=== PATIENT | female | born 1960 | race Caucasian/White ===

== ENCOUNTER 2018-08-01 05:24 | Inpatient (IN) ==
[2018-08-01] MEDS ORDERED: ceFAZolin Inj 2gm (Premix) 2 GM/50 ML BAG IV ONE ×2 (05:54→06:00)
[2018-08-01] MEDS ORDERED: LIDOCAINE W/ SODIUM BICARB 0.5 ML SYR ONE (05:54)
[2018-08-01] MEDS ORDERED: Lactated Ringers 1,000 ML PRIMARY IV ONE ×7 (05:54→15:42)
[2018-08-01] MEDS ORDERED: Sodium Chloride 0.9% 250 ML ONE (05:54)
[2018-08-01] MEDS ORDERED: Vancomycin Inj 1gm vial ONE ×2 (05:54→07:03)
[2018-08-01] MEDS ORDERED: Nasal Sanitizer POPSWAB ampule 3 AMP (Nozin) PREOP DOSE ENOS SCH (06:00)
[2018-08-01] MEDS ORDERED: LIDOCAINE W/ SODIUM BICARB 0.5 ML SYR SUBD ONE (06:00)
[2018-08-01] MEDS ORDERED: Propofol 1,000 MG/100 ML VIAL IV ONE ×5 (06:48→14:38)
[2018-08-01] MEDS ORDERED: REMIFENTANIL HCL 2 MG VIAL IV ONE ×3 (06:50→15:05)
[2018-08-01] MEDS ORDERED: LIDOCAINE MPF 2% - 5 ML (20 MG/1 ML) ONE (06:59)
[2018-08-01] MEDS ORDERED: PROPOFOL 10 MG/1 ML (200 MG/20 ML) VIAL IV ONE (06:59)
[2018-08-01] MEDS ORDERED: BACITRACIN 50,000 UNIT VIAL IRRIG ONE (06:59)
[2018-08-01] MEDS ORDERED: fentaNYL Inj 250 MCG/5 ML VIAL ONE (06:59)
[2018-08-01] MEDS ORDERED: MIDAZOLAM 5 MG/1 ML ONE (06:59)
[2018-08-01] MEDS ORDERED: BUPIVACAINE 0.25% W/ EPI - 10 ML VIAL ONE (07:01)
[2018-08-01] MEDS ORDERED: Gentamicin Inj 40 MG/ML VIAL ONE (07:01)
[2018-08-01] MEDS ORDERED: Sodium Chloride 0.9% vial 40 ML ONE (07:06)
[2018-08-01] MEDS ORDERED: ePHEDrine Inj 50 MG/ML AMP ONE (07:33)
[2018-08-01] MEDS ORDERED: KETAMINE 100 MG/1 ML - 5 ML ONE (11:37)
[2018-08-01] MEDS ORDERED: ceFAZolin 1 GM VIAL ONE (11:39)
[2018-08-01] MEDS ORDERED: ONDANSETRON 4 MG/2 ML VIAL ONE (14:25)
[2018-08-01] MEDS ORDERED: HYDROmorphone 2 MG/1 ML ONE (14:25)
[2018-08-01] MEDS ORDERED: BUPivacaine Liposome/PF (Exparel) Inj 20ml vial INFIL ONE (15:56)
[2018-08-01] MEDS ORDERED: Sodium Chloride 0.9% vial 10 ML ONE (15:57)
[2018-08-01] MEDS ORDERED: Prochlorperazine Edisylate Inj 10mg/2ml vial IVP PRN (16:56)
[2018-08-01] MEDS ORDERED: LIDOCAINE W/ SODIUM BICARB 0.5 ML SYR SUBD PRN (16:56)
[2018-08-01] MEDS ORDERED: HYDROmorphone 2 MG/1 ML IVP PRN (16:56)
[2018-08-01] MEDS ORDERED: oxyCODONE/APAP 10/325 Tab 1 EACH TAB PO PRN (16:56)
--- NOTE | 2018-08-01 16:56 | CRNA.PROGR ---
Anesthesia Recovery Phase I - Post Anesthesia Evaluation Patient's Condition on Arrival in Phase I: Stable Pain Level: 1
[2018-08-01] MEDS ORDERED: Lactated Ringers 1,000 ML PRIMARY IV SCH (17:00)
[2018-08-01] MEDS ORDERED: DIAZEPAM 10 MG/2 ML (5 MG/1 ML) CARPUJECT ONE (17:07)
--- NOTE | 2018-08-01 17:07 | CRNA.PROGR ---
Anesthesia Time - Procedure/Recovery Time Start Date: 08/01/18 End Date: 08/01/18 Anesthesia : Time In: 07:22 Anesthesia : Time Out: 16:52 Anesthesia : Total Time: 570 - Total Anesthesia Time Total Anesthesia Time (minutes): 570 - Other Weight: 78.471 kg Height: 5 ft 3 in Body Mass Index (BMI): 30.6 Physical Status: P2 Anesthesia Type: General Anesthesia : ET (TIVA)
--- NOTE | 2018-08-01 18:03 | GEN.OPNOTE ---
Operative Note Surgery Date: 08/01/18 Preoperative Diagnosis: 1.) Low back pain. 2.) Symptomatic lumbar stenosis/ neurogenic claudication. 3.) Severe lumbar central canal stenosis, L4-5. 4.) Severe lumbar lateral recess stenosis, L4-5 bilaterally. 5.) Severe lumbar neuroforaminal stenosis, L4-5 bilaterally. 6.) L4-5 spondyloslisthesis. 7.) L4 -5 degenrative disc disease/spondylosis (adjacent level). 8.) S/P L6-S1 interbody fusion/L5-L6-S1 posterolateral instrumented fusion. Postoperative Diagnosis: Same. Procedure: 1.) L5-L6-S1 hardware removal (CPT code: 54622). 2.) Inspection of fusion (CPT code: 56009-65). 3.) Partial L4 laminectomy with medial facetectomies and foraminotomies for decompression of severe central canal, lateral recess, and neuroforaminal stenosis (CPT code: 85068). 4.) Partial L5 laminectomy with medial facetectomies and foraminotomies decompression of severe central canal, lateral recess, and neuroforaminal stenosis (CPT code: 90106). 5.) L4-5 discectomy/arthrodesis of the L4 and L5 endplates, posterolateral interbody technique, in preparation for fusion of the L4-5 interspace with L4-5 posterolateral transverse process arthrodesis in preparation for posterolateral fusion (CPT code: 95339). 6.) L5-L6 posterolateral arthrodesis bilaterally for posterolateral fusion (CPT code: 52973). 7.) L6-S1 posterolateral arthrodesis bilaterally for posterolateral fusion (CPT code: 33635). 8.) Insertion of 7mm x 28 mm x 11 mm and 8 mm x 28 mm x [address] posterior lumbar interbody cages into the L4-5 interspace for fusion of the interspace (CPT code: 43036). 9.) L4-L5-L6 posterolateral semental spinal instrumentation using the [employer] [place] 3 pedicle screw and maryanne system (CPT code: 57497). 10.) Use of autograft, harvested from the same incision, cleaned of soft tissue and morselized for interbody and posterolateral fusion (CPT code: 10956). 11.) Use of 5 cc of My 1% i- Factor synthetic bone producet (allograft) and 20 cc Anca BIO DBM Plus Putty with cancellous chips (allograft) for interbody and posterolateral fusion, and [employer] Vitoss synthetic bone product (allograft) and 30 cc cancellous bone chips (allograft) for posterolateral fusion (CPT code: 05507). 12.) Use of intra-operative neuronavigation using the [employer] Neuronavagation system with [employer] 3D fluoroscopy units (CPT code: 31700). 13.) Use of intra-operative fluoroscopy for localization of correct surgical levels and for final confirmation of position of intervertebral cage and posterolateral hardware elements. 14.) Use of intra-operative neuromonitoring for neuromonitoring of the spinal nerves with continuous EMG, triggered EMG, and SSEP's. Surgeon: Rafael Segovia MD Pocketed Spring Assembler: MOIZ Aleman Anesthesia Provider: Carson Mahmood CRNA Anesthesia Type: General Estimated Blood Loss (mL): 350 Fluids: See anesthesia record Pathology: None Indications: Ms. Lesa Hollingsworth is a 57-year-old female status with back and bilateral leg pain, status post two lumbar fusions performed previously by Dr. Ardon. She has fusion and instrumentation from L5 across L6 to S1. She has imaging studies that demonstrate adjacent-level degenerative disc disease and adjacent- level lumbar spondylosis with facet arthropathy and hypertrophy with severe spinal canal, lateral recess, and neuroforaminal stenosis at the L4-5 level. She has failed to improve with nonoperative therapies. We discussed considering surgical treatment which, in my opinion, would entail removal of her L5 to L6 to S1 hardware and decompression of her severe lumbar central canal , laeral recess, and neuroforaminal stenosis and extension of her fusion to the L4-5 level with interbody and posterolateral fusion. Ms. Hollingsworth wished to proceed with surgical treatment. Findings: Severe central canal, lateral recess, and neuroforaminal stenosis bilaterally Complications: None Operative Summary: Ms. Hollingsworth was met in the preoperative area. Her surgical history and physical was updated. The procedure to be performed was confirmed with this Effler and this matched what was written on the patient's consent form. Any questions that she or family members had were answered before she was taken back to the operating room suite. Ms. Hollingsworth was brought back to the operating room suite. She was put under general anesthesia and intubated by the anesthesia staff. She had a Jamison catheter placed in her bladder for the procedure. She had pneumatic compression hose placed on her lower legs bilaterally. Ms. Hollingsworth was carefully rolled over onto the Gage surgical table with her arms gently positioned upwards with her shoulders abducted less than 90. Her arms were well-padded with foam padding on top of the padding of the surgical armboards. Her chest and axilla were checked bilaterally to make sure that there was no pressure points over the region of the brachial plexus bilaterally. Her breasts were checked to be below the chest pad and the Gage table with no pressure points of the nipples. All bony prominences were well-padded. Her Jamison catheter was checked be free from kinks. Her pneumatic compression hose as attached to a pneumatic compression device. Ms. Hollingsworth's previous incision was demarcated with a skin marker was several crosshatches. She was prepped and draped in the usual and standard fashion. She was given 2 g of Ancef IV and 1 g of vancomycin IV for perioperative antibiosis. She was given 10 mg of Decadron IV. A standard surgical timeout was performed identifying the correct patient, the patient's symptoms, the correct procedure, and the correct equipment being available for the procedure. The intended skin incision was injected subcutaneously with quarter percent Marcaine with 1 in 200,000 epinephrine. 20 mL of local anesthetic was used. Skin was incised with a 10 blade scalpel and all dermal and superficial bleeding points were coagulated with bipolar cautery. Dissection was continued through the subcutaneous tissue down to the lumbar fascia. The subcutaneous tissue was dissected back from the fascia using Bains elevators to assist with helping identify the fascia for the closure portion of the procedure. The fascia was opened with Bovie cautery. There were interrupted heavy PDS sutures which were cut with suture scissors. The L3 spinous process, the last fully remaining spinous process was identified. Subperiosteal dissection was performed down the spinous process and out over the lamina using Bovie cautery. Proceeding caudally the remaining aspect of the L4 spinous process was identified and subperiosteal dissection was performed down the remaining aspect of this spinous process and out over the L4 lamina bilaterally. Further dissection was performed more caudally in the region of the scar tissue from the patient's previous surgery where the dissection was taken laterally earlier as the dissection proceeded ventrally to avoid entering into any decompressed areas of the spinal canal. This allowed identification of the patient's L5 to L6 to S1 hardware bilaterally. The hardware was dissected out with Bovie cautery and a large Leksell rongeur. The dissection was taken slightly lateral to the hardware construct bilaterally. More rostrally the dissection was taken out laterally from the L4 lamina October the L4 transverse processes bilaterally. Cerebellar Gelpi retractors were placed for self-retaining retraction. The set screws over the rods in the tulips of the pedicle screws from L5, L6, and S1 were removed with the appropriate hardware removal screwdriver. The rods spanning the L5, L6, and S1 pedicle screws bilaterally were then removed the maryanne castro. With the pedicle screws now all independent a large Leksell rongeur was used to gently tog in each of the pedicle screws to see if there is any movement noted between any of the pedicle screws and any of the facet joints at the previous refused levels. No motion was identified across the fusion construct. With the hardware all now removed, soft tissue underneath where the hardware had been and lateral to the hardware as well as slightly medial to the hardware was all dissected down to bone and a solid posterior lateral fusion mass was noted from the L5 level across the L6 level to across the S1 level bilaterally. Soft tissue was dissected off the spine more rostrally using Bovie cautery and a large Leksell rongeur. It was noted that not only was the L5 lamina intact but part of the L6 lamina was intact as well. Extensive decortication was performed of the L4 transverse process and the lateral aspect of the L3-4 facet joint and the L5 to L6 to S1 posterior lateral fusion mass was decorticated bilaterally as well. The decortication was all performed with the [employer] high-speed drill with a matchstick bit. The bone dust created was collected and saved to be used as autograft during the fusion portion of the procedure. Attention was turned to performing the decompression to relieve the severe spinal stenosis, bilateral lateral recess stenosis, and bilateral neuroforaminal stenosis by performing a partial L4 and partial L5 laminectomies with medial facetectomies and foraminotomies bilaterally. Severe central canal and lateral recess stenosis was encountered secondary to bony arthropathy and hypertrophy of the facet joints at this level into the lateral recesses bilaterally as well as secondary to thickened ligamentum flavum. This bony arthropathy and hypertrophy and thickened ligament was all completely removed with the high-speed drill with a matchstick bit as well as with various size Kerrison punches. Attention was turned back to the posterior lateral instrumentation portion of the procedure. This the [employer] neuro navigation reference arc was securely attached to the L3 spinous process and a spin was performed with the [facility] 3-D fluoroscopy unit. The [employer] neuro navigation pedicle finder was then used to cannulate the L4 pedicles bilaterally. The internal aspect of the L4 pedicles were palpated with a small ball-tip instrument. The L4 pedicles were then tapped with the appropriate size Anca Dominick 3 pedicle tap. The internal aspect of the pedicles were palpated again with a small ball-tip instrument. The L4 pedicle screws were then placed. 5.5 x 55 mm Anca Dominick 3 titanium pedicle screws were placed into the L4 pedicles bilaterally. The pedicle screws obtained good purchase in the pedicle and vertebral body bone. The pedicle screw removed from the L5 pedicle on the left was replaced with a 7.5 x 45 mm Anca Dominick 3 titanium pedicle screw (with this screw being 0.5 mm greater in diameter and 5 mm longer in length then the pedicle screw removed). This screw obtained good purchase in the pedicle and vertebral body bone. No pedicle screw was replaced in the right L5 pedicle because clearly a maryanne would not be able to the fit spanning from the new L4 pedicle screw tulip to new L5 and L6 pedicle screws using the same tracks of the previous screws as these pedicle screw positions were much more lateral on this side than the new L4 pedicle screw placed. The pedicle screws removed from the L6 pedicles bilaterally were replaced with 7.5 mm x 45 mm [place] Dominick 3 titanium pedicle screws (with the screws being in diameter but 10 mm longer than the pedicle screws that had been removed). These pedicle screws obtained good purchase in the pedicle and vertebral body bone. And she was turned to the discectomy and interbody fusion portion of the procedure. The medial facetectomy at L4-5 on the left was extended laterally using the high-speed drill with a matchstick bit. 4 instrument was used to carefully dissect the soft tissue adjacent to the takeoff of the L5 nerve root identifying the L4-5 disc space. The thecal sac and the takeoff of the L5 nerve root were carefully retracted with a 2 recode nerve root retractor and epidural veins over the disc space were coagulated with bipolar cautery turned down to a low setting and cut with microscissors. An annulotomy was performed with a 10 blade scalpel. Disc material was removed with a pituitary rongeur. Additional disc and cartilaginous endplate was removed from the L4-5 interspace using the K2 7 mm disc space shaver. The down-biting large Manny curette was used to loosen disc laterally in the interspace bilaterally with fragments of disc being removed with the pituitary rongeur. The large Manny curette was also used to decorticate the L4 and L5 endplates in preparation for fusion of the L4-5 interspace. The L4-5 interspace was irrigated with bacitracin irrigation. Approximately 2 cc of a mixture of [employer] --Factor synthetic bone product (allograft) and [place] BIO DBM Plus putty with cancellous chips (allograft) was placed into the interspace and moved anteriorly with a bone tamp. A 7 mm x 28 mm x 11 mm 0 tri-titanium PL titanium lumbar interbody cage was selected as the appropriate cage and filled in the center with morcellized autograft. The cage was then inserted into the L4-5 interspace with the coil placer. The cage was gently countersunk with a bone tamp and mallet. The final position of the cage was confirmed with lateral fluoroscopy. The cage was noted to be in the inferior endplate of the L4 vertebral body on the left and not in the L4-5 interspace. It was therefore decided to perform an interbody fusion at the same level from the right. The same procedure was performed in exactly the same manner but an 8 mm x 28 mm x 11 mm [address] titanium lumbar interbody cage filled in the center with morcellized autograft was inserted into the L4-5 interspace on the right. The cage was gently countersunk with a bone tamp and mallet. The cage obtained good purchase between the endplates of L4 and L5. The final position of the cage was confirmed to be in the L4-5 interspace by lateral fluoroscopy. Attention was turned back to the posterior lateral instrumentation portion of the procedure. 6 mm x 70 mm pre-bent to [place] Dominick 3 titanium rods were selected and placed into the tulips of the L4 and L6 pedicle screws on the right and the L4-L5 and L6 pedicle screws on the left. Set screws were placed over the rods in the tulips of the pedicle screws on each side and they were tightened down hand tight at first and then tightened down to the final tightness using the torque counter torque device. The surgical site was then irrigated with a bottle of hydrogen peroxide solution. The surgical site was then pulse lavaged with 3 L of bacitracin/ vancomycin/gentamicin solution. 10 mL of [employer] Vitoss synthetic bone product (allograft) was split with half of this product being placed lateral to the hardware construct from the L4 transverse process to the posterior lateral fusion mass at the L6 level bilaterally. The remaining autograft was mixed with 30 mL of cancellous bone chips (allograft) with half of this product being placed lateral to the hardware construct bilaterally from the L4 transverse process to the posterior lateral fusion mass at the L6 level bilaterally, being placed over the Vitoss synthetic bone product. The remaining mixture of [employer]'s i-Factor synthetic bone product (allograft) mixed with the [place] BIO DBM Plus putty with cancellous chips (allograft) was mixed with another 10 mL of Anca BIO DBM Plus putty with cancellous chips (allograft) and this mixture was then split with half of this mixture being placed lateral to the hardware construct from the L4 transverse process to the posterior lateral fusion mass at the L6 level over the mixture of morcellized autograft and chips (allograft) to help keep the bone chips in place and provide further bone product for fusion mass. The exposed the canal and lateral gutters were inspected for any bone fragments. Any identified were removed with forceps. The canal and lateral gutters were irrigated with a small amount of bacitracin irrigation was removed with suction. FloSeal hemostatic agent was placed in the lateral recesses bilaterally and over all exposed dural elements. The exposed canal was covered with Gelfoam. A medium Hemovac drain was placed into the surgical site. The closure was begun. The fascial layer was closed tightly with #1 Vicryl suture in an interrupted fashion. The surgical site was again irrigated with bacitracin irrigation. 20 cc of Exparil, diluted with 1occ of 1/4 percent marcaine was injected in the subcutaneous layer all around the incision. The deep subcutaneous tissue and fascia was reapproximated with 2-0 Vicryl suture in an interrupted fashion. The dermis and superficial subcutaneous tissue was reapproximated with 3-0 Vicryl suture in an inverted interrupted fashion. The Ioban drape was pulled back the skin edges. Final layer of closure was performed with surgical stainless steel eric. The incision was cleansed with bacitracin soaked sponge and dried with a sterile dry sponge. The incision was dressed with a Mepilex dressing. The surgical drain was secured with suture. The drain site was dressed. All surgical drapes were removed from Ms. Hollingsworth. She was carefully rolled over onto the PACU stretcher. She was awoken and extubated by the anesthesia staff. She was taken to the recovery room in stable condition. Several surgical counts were performed and all were reported to be correct by the scrub and circulating personal. A physician's community relations assistant, Ms. Gabriela Posadas PA-C assisted with the procedure including the exposure and closure portions of the procedure. She also skillfully and carefully retracted the nerve structures during the more critical portions of the procedure such as a discectomy and intervertebral cage placement. She also provided irrigation and suctioning as well as retraction throughout the surgical procedure.
[2018-08-01] MEDS ORDERED: MAGNESIUM 400 MG/5 ML - 30 ML (MILK OF MAGNESIA) PO PRN (18:26)
[2018-08-01] MEDS ORDERED: oxyCODONE-ACETAMINOPHEN 5-325 TAB PO PRN (18:26)
[2018-08-01] MEDS ORDERED: Fleet Enema 133ml RECTAL PRN (18:26)
[2018-08-01] MEDS ORDERED: Vancomycin-PHA to Dose IV SCH (18:26)
[2018-08-01] MEDS ORDERED: BISACODYL 5 MG TABLET PO PRN (18:26)
[2018-08-01] MEDS ORDERED: DOCUSATE 100 MG CAPSULE PO PRN (18:26)
[2018-08-01] MEDS ORDERED: MAGNESIUM CITRATE 296 ML SOLUTION PO PRN (18:26)
[2018-08-01] MEDS: MORPHINE SULFATE 4 MG/1 ML IVP PRN (19:04)
[2018-08-01] MEDS: ceFAZolin Inj 1 GM in Sodium Chloride 0.9% 100 ML IV SCH (19:04)
[2018-08-01] MEDS: FLUTICASONE/SALMETEROL 250/50 UD INHALER INH SCH (19:07)
[2018-08-01] MEDS: oxyCODONE/APAP 7.5/325 Tab 1 TAB TAB PO PRN (19:20)
[2018-08-01] MEDS: DIAZEPAM 5 MG TABLET PO PRN (19:20)
--- NOTE | 2018-08-01 19:43 | NEURO.PROG ---
Subjective Post Op Day: 0 Pain Management: IV Jamison Catheter: Yes Diet: Regular Additional Details: Awake and alert. No current complaint except mild surgical back pain. Denies any new leg symptoms. Moving all extremities. Dorsiflexing/plantarflexing feet well bilaterally. PLAN: 1.) Continue post-operative antibiotic. 2.) Continue post-operative pain control. 3.) Continue surgical drain. 4.) Continue majority of home meds except aspirin and home pain meds. 5.) Advance diet and PO intake. 6.) Discontinue Jamison catheter tomorrow if ambulating. 7.) To be fitted for lumbar brace tomorrow. 8.) Start to mobilize in brace with PT tomorrow. Objective : Data - Vital Signs Vital Signs and I&O: Vital Signs - Last Taken Temperature 98.2 F 08/01/18 17:20 Pulse Rate 86 08/01/18 17:20 Respiratory Rate 14 08/01/18 17:20 Blood Pressure 147/99 08/01/18 17:20 Pulse Ox 94 08/01/18 17:20 Intake and Output (24hr x 4 totals) 07/30/18 07/31/18 08/01/18 08/02/18 05:59 05:59 05:59 05:59 Intake Total 5000 / 5000 Output Total 1850 / 1850 Balance 3150 / 3150
[2018-08-01] MEDS: Pravastatin 80mg Tab PO SCH (20:49)
[2018-08-01] MEDS: GABAPENTIN 400 MG CAPSULE PO SCH (20:49)
[2018-08-01] MEDS: ALPRAZolam Tab 1 MG TABLET PO SCH (20:51)
[2018-08-01] MEDS ORDERED: Influenza 18-19 Vaccine (6mo+) 60 MCG/0.5 ML SYRINGE IM ONE (21:22)
[2018-08-02] MEDS: DIAZEPAM 5 MG TABLET PO PRN ×4 (00:23→17:51)
[2018-08-02] MEDS: oxyCODONE/APAP 7.5/325 Tab 1 TAB TAB PO PRN ×2 (00:23→07:08)
[2018-08-02] MEDS ORDERED: ACETAMINOPHEN 325 MG TABLET PO PRN (00:35)
[2018-08-02] MEDS: ceFAZolin Inj 1 GM in Sodium Chloride 0.9% 100 ML IV SCH (02:42)
[2018-08-02] MEDS: oxyCODONE/APAP 10/325 Tab 1 EACH TAB PO PRN ×5 (04:15→20:38)
[2018-08-02 04:36] LABS: BASOPHILS # (AUTO) 0.01 10*3/UL; BASOPHILS % (AUTO) 0.1 % (0-1); EOSINOPHILS # (AUTO) 0.02 10*3/UL; EOSINOPHILS % (AUTO) 0.2 % (0-8); Hematocrit [HCT] 31.6 % (37.0-47.0); Hemoglobin [HGB] 10.1 g/dL (12.0-16.0); LYMPHOCYTES # (AUTO) 1.35 10*3/uL; MEAN CORPUSCULAR HEMOGLOBIN 28.1 PG (27-31); MEAN CORPUSCULAR VOLUME 87.8 FL (81-99); MEAN PLATELET VOLUME 10.3 FL (7.4-12.2); MONOCYTES # (AUTO) 0.54 10*3/UL (0.3-0.8); MONOCYTES % (AUTO) 6.1 % (5-15); NEUTROPHILS # (AUTO) 6.95 10*3/UL; NEUTROPHILS % (AUTO) 78.3 % (50-80)
[2018-08-02 04:37] LABS: PLATELET MORPHOLOGY COMMENT NORMAL MORPHOLOGY (NORM); RBC MORPHOLOGY COMMENT NORMAL MORPHOLOGY (NORM); WBC MORPHOLOGY COMMENT NORMAL MORPHOLOGY (NORM)
[2018-08-02 04:57] LABS: BLOOD UREA NITROGEN 10 mg/dL (7-22); BUN/CREATININE RATIO 16.66 (6-20)
[2018-08-02] MEDS: FLUTICASONE/SALMETEROL 250/50 UD INHALER INH SCH ×2 (06:07→18:53)
[2018-08-02] MEDS: PANTOPRAZOLE 40 MG TABLET PO SCH (07:08)
[2018-08-02] MEDS ORDERED: Influenza 18-19 Vaccine (6mo+) 60 MCG/0.5 ML SYRINGE IM ONE (08:52)
[2018-08-02] MEDS ORDERED: DULOXETINE 60 MG CAPSULE PO SCH (09:00)
[2018-08-02] MEDS ORDERED: Multivitamin Tab 1 TAB PO SCH (09:00)
[2018-08-02] MEDS ORDERED: LORATADINE 10 MG TABLET PO SCH (09:00)
[2018-08-02] MEDS ORDERED: Montelukast Tab 10 MG TAB PO SCH (09:00)
[2018-08-02] MEDS ORDERED: ATOMOXETINE PO SCH (09:00)
[2018-08-02] MEDS ORDERED: Ropinirole Tab 1 MG TAB PO SCH (09:00)
[2018-08-02] MEDS: ALPRAZolam Tab 1 MG TABLET PO SCH ×2 (09:16→20:37)
[2018-08-02] MEDS: GABAPENTIN 400 MG CAPSULE PO SCH ×2 (09:17→20:37)
[2018-08-02] MEDS: MORPHINE SULFATE 4 MG/1 ML IVP PRN (10:59)
[2018-08-02] MEDS ORDERED: NICOTINE 21 MG /DAY PATCH TRANSDERM SCH (11:00)
--- NOTE | 2018-08-02 11:05 | NEURO.PROG ---
Subjective Post Op Day: 1 Pain Management: IV Jamison Catheter: Yes Flatus: Yes Diet: Regular Ambulating: Yes Objective : Data - Labs CBC and BMP: 08/02/18 04:17 08/02/18 04:17 - Vital Signs Vital Signs and I&O: Vital Signs - Last Taken Temperature 98.9 F 08/02/18 07:17 Pulse Rate 80 08/02/18 07:17 Respiratory Rate 16 08/02/18 07:17 Blood Pressure 134/75 08/02/18 07:17 Pulse Ox 94 08/02/18 07:17 Intake and Output (24hr x 4 totals) 07/31/18 08/01/18 08/02/18 08/03/18 05:59 05:59 05:59 05:59 Intake Total 6665 / 6665 1638 / 1638 Output Total 4495 / 4495 1974 Balance 2170 / 2170 -337 / -337
--- NOTE | 2018-08-02 13:16 | PDOC ---
HPI - History of Present Illness Date of Service: 08/02/18 Time of Service: 11:20 Chief Complaint: Back pain History of Present Illness: This is a very pleasant 57-year-old female from [place], [place], with underlying anxiety disorder, chronic back pain, and prior back surgery. She is here for neck surgery performed by Dr. Segovia, please see his surgical note for details. Postoperatively, she has been doing well, no complaints of chest pain, shortness breath, nausea or vomiting. Her back pain is been difficult to control but she is responding to her by mouth medications. She is been doing therapy and is been able to walk around fairly well. We were asked to help comment on how to manage her medical issues in the setting of this back surgery. Past Medical History Medical History: 1. Chronic back pain. 2. Hypercholesterolemia. 3. Depression with anxiety features. 4. Tobacco abuse Surgical History: 1. Right knee replacement. 2. Left shoulder replacement. 3. Prior back surgery Pertinent Family History: No family history of diabetes or coronary artery disease. Past Social History: Smokes daily. Does not drink alcohol. 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 As a child described as healthy. . Tobacco Use: Former Smoker In the Past 12 Months, Have Used or Abuse Any of the Following Substance: None Alcohol Use: None Medication / Allergies Home Medications: Home Medications 3 Medication Instructions Recorded Confirmed Type hydrocodone 5 mg-acetaminophen 325 1 tab PO Q6H PRN #60 tab 06/26/18 07/31/18 Rx mg tablet alprazolam 1 mg tablet 1 mg PO BID 06/27/18 07/31/18 History aspirin 325 mg tablet 325 mg PO QDAY 06/27/18 07/31/18 History atomoxetine 40 mg capsule 40 mg PO QDAY 06/27/18 07/31/18 History dextroamphetamine-amphetamine 10 10 mg PO QDAY 06/27/18 07/31/18 History mg tablet duloxetine 60 mg capsule,delayed 60 mg PO QDAY 06/27/18 07/31/18 History release fluticasone 250 mcg-salmeterol 50 1 inh INH BID 06/27/18 07/31/18 History mcg/dose blistr powdr for inhalation gabapentin 800 mg tablet 800 mg PO BID 06/27/18 07/31/18 History pantoprazole 40 mg tablet,delayed 40 mg PO QDAY 06/27/18 07/31/18 History release pravastatin 80 mg tablet 80 mg PO QDAY 06/27/18 07/31/18 History vortioxetine 10 mg tablet 10 mg PO QDAY 06/27/18 07/31/18 History Cetirizine HCl [Zyrtec] 10 mg PO DAILY 08/01/18 08/01/18 History Fluticasone/Salmeterol [Advair 1 ea IH DAILY 08/01/18 08/01/18 History 250-50 Diskus] Montelukast Sodium [Singulair] 10 mg PO DAILY 08/01/18 08/01/18 History Multivitamin [Multi-Vitamin Daily] 1 ea PO DAILY 08/01/18 08/01/18 History Ropinirole HCl [Requip] 2 mg PO DAILY 08/01/18 08/01/18 History Zolpidem Tartrate [Ambien Cr] 6.25 mg PO DAILY 08/01/18 08/01/18 History Allergies/Adverse Reactions: Allergies 3 Allergy/AdvReac Type Severity Reaction Status Date / Time No Known Allergies Allergy Verified 07/31/18 13:47 Review of Systems - Respiratory Respiratory: REPORTS: Negative System Review - Cardiovascular Cardiovascular: REPORTS: Negative System Review - Gastrointestinal Gastrointestinal / Abdominal: REPORTS: Negative System Review - Genitourinary Genitourinary: REPORTS: Negative System Review Exam - Vitals Vital Signs: Vital Signs Temperature 98.2 F Temperature Source Temporal Artery Scan Pulse Rate [Pulse Oximeter] 82 Pulse Rate 86 Respiratory Rate 18 Blood Pressure [Right Arm] 118/59 Blood Pressure 147/99 Pulse Ox 93 Oxygen Flow Rate 0.5 Oxygen Delivery Method Room Air Height 5 ft 3 in Weight 178 lb 6.4 oz - General General Appearance: No Acute Distress, Cooperative - Head Head Exam: Normal Inspection, Normocephalic, Atraumatic - Eye Eye Exam: POSITIVE: No Scleral Icterus - ENT ENT Exam: POSITIVE: Mucous Membranes Moist - Neck Neck Exam: Normal Inspection, JVP is not Raised - Respiratory Respiratory Exam: POSITIVE: Clear to Auscultation - Bilaterally, Breathing Non Labored - Cardiovascular Cardiovascular Exam: POSITIVE: RRR, No Murmur, No Clicks, No Gallops, No Rubs, No JVD - GI/Abdominal GI/Abdominal Exam: POSITIVE: Normal Bowel Sounds, Non Tender, Non Distended, Soft - Rectal Rectal Exam: POSITIVE: Deferred - External Exam: POSITIVE: Deferred Exam: POSITIVE: Deferred - Extremities Extremities Exam: POSITIVE: No Clubbing Present, No Edema Present, No Cyanosis Present - Neurological Neurological Exam: POSITIVE: Alert, Oriented x 3, Normal Gait (I observed the patient walking in the coronel with therapy today.), No Facial Droop, Speech Intact / Clear, Moves All Extremities Equally - Psychiatric Psychiatric Exam: POSITIVE: Normal Affect, Normal Mood Results - Labs CBC and BMP: 08/02/18 04:17 08/02/18 04:17 - EKG Data EKG Interpretation: Other (Monitoring strips appear normal sinus rhythm.) Assessment and Plan - Patient Problems (1) Hypercholesterolemia Current Visit: Yes Status: Acute Code(s): E78.00 - Pure hypercholesterolemia , unspecified (2) Depression with anxiety Current Visit: Yes Status: Acute Code(s): F41.8 - Other specified anxiety disorders (3) Tobacco abuse Current Visit: Yes Status: Acute Code(s): Z72.0 - Tobacco use (4) Chronic back pain Current Visit: No Status: Chronic Code(s): M54.9 - Dorsalgia, unspecified; G89.29 - Other chronic pain Qualifiers: Back pain location: low back pain Back pain laterality: unspecified Sciatica presence: unspecified whether sciatica present Qualified Code(s): M54.5 - Low back pain; G89.29 - Other chronic pain - Assessment / Plan Additional Assessment/Plan Details: I would recommend continuing statin therapy for now. I would recommend continuing antidepressants and antianxiety medications. We will also resume the patient's home Ambien for when necessary use for insomnia. Thank you for this consult, will be our pleasure to continue to advise on medical issues during the patient's hospital stay.
--- NOTE | 2018-08-02 15:35 | PT.PROG ---
Progress Note Progress Note: S. Patient stated that she is sore this afternoon, however would like to get out of bed. O. Patient performed log roll transfer then ambulated 750 feet around the nurses station, then ascended and descended 12 stairs. Patient performed log roll to get back into bed and was left with alarm and call light. A. patient tolerated therapy well, She was able to perform stairs and ambulation with no increase in pain or problems. Patient has met all goals at this time. P. Continue POC.
[2018-08-02] MEDS: Pravastatin 80mg Tab PO SCH (20:37)
[2018-08-02] MEDS ORDERED: ZOLPIDEM 6.25 MG PO SCH (21:00)
[2018-08-03] MEDS: DIAZEPAM 5 MG TABLET PO PRN ×2 (00:14→08:07)
[2018-08-03 01:10] VITALS: O2SAT 93
[2018-08-03] MEDS: oxyCODONE/APAP 10/325 Tab 1 EACH TAB PO PRN ×2 (04:40→08:08)
[2018-08-03] MEDS: FLUTICASONE/SALMETEROL 250/50 UD INHALER INH SCH (06:10)
--- NOTE | 2018-08-03 07:26 | NEURO.PROG ---
Subjective Post Op Day: 2 Pain Management: PO Jamison Catheter: No Flatus: Yes Diet: Regular Ambulating: Yes Additional Details: Awake, alert, and oriented. No complaints. Denies right leg pain. Surgical pain controlled with Percocet and Valium. Doing well. Drain output - 70cc. Wishes to be discharged to home. PLAN: 1.) Discontinue drain. 2.) Discharge to home. Objective : Data - Labs CBC and BMP: 08/02/18 04:17 08/02/18 04:17 - Vital Signs Vital Signs and I&O: Vital Signs - Last Taken Temperature 97.6 F 08/03/18 05:00 Pulse Rate 95 08/03/18 05:00 Respiratory Rate 20 08/03/18 05:00 Blood Pressure 109/77 08/03/18 05:00 Pulse Ox 93 08/03/18 05:00 Intake and Output (24hr x 4 totals) 08/01/18 08/02/18 08/03/18 08/04/18 05:59 05:59 05:59 05:59 Intake Total 6665 / 6665 2738 / 2738 Output Total 4495 / 4495 3215 / 3215 700 / 700 Balance 2170 / 2170 -477 / -477 -700 / -700
[2018-08-03] MEDS: PANTOPRAZOLE 40 MG TABLET PO SCH (07:46)
[2018-08-03 07:48] VITALS: BP 95/64; RESP 18; TEMP 98.7
[2018-08-03] MEDS ORDERED: Patch Removal PATCH TRANSDERM SCH (09:00)
--- NOTE | 2018-08-03 09:06 | OT.PROG ---
Progress Note Progress Note: S: pt stated that she was ready to go home. O: tx consisted of budget report clerk education and demonstration of understanding by donning LE pants independently. pt used sock aide to magda socks independently. pt dressed UE independently and donned back brace independently. pt followed all precautions during dressing. pt completed functional ambulation x 5' to chair where pt completed transfer to reclining chair independently. A: pt tolerated session well. pt had mild pain when standing. P: pt is D/C from skilled OT services.
--- NOTE | 2018-08-03 09:21 | PTI REPORT ---
Thank you for the referral of Lesa Hollingsworth. She was seen on 08/02/18 for an inpatient evaluation status post lumbar fusion. SUBJECTIVE: The patient is a 57-year-old female who underwent a lumbar fusion yesterday. The patient states that she is doing fair this morning. She does report that she does need her GALE hose on and has not been issued a lumbar brace yet. The patient states that this is her third back surgery and she is familiar with the precautions. The patient has also undergone a total knee and a total shoulder replacement. The patient states that prior to surgery she was not having any noticeable weakness from the right to the left or numbness or tingling down into her legs. The patient denies any falls over the last three months. The patient states that she lives in [place] with her parents and her mom will help post surgery with any ADLs or iADLs as needed. The patient states that there is quite a few stairs at the house in which they live in and she will be upstairs. She states that everything she needs to access is within that floor. The patient also states that she has a front wheeled walker that she has used following her other surgeries that she will use as well. PAST MEDICAL HISTORY: Past medical history can be found in the patient's medical record. OBJECTIVE FINDINGS: General observations: The patient was alert and oriented to setting upon PT arrival. The patient was in bed on one liter of oxygen. She did have a drain in place and also a Jamison catheter. The patient was issued GALE hose and those were placed on her bilateral lower extremities. The patient was instructed on post lumbar fusion precautions including no bending/lifting/twisting, wearing her brace whenever she is up, how to log roll in and out of bed, and gentle nerve glides. Bed mobility: The patient was very apprehensive to try log rolling out of bed as she stated that her mother could help pull her arm to help sit her up as she will be laying on the couch. Once we did discuss the whole process of how to perform a proper log roll, the patient did attempt and was able to successfully complete a log roll to go from supine to sit. Once in a seated position the patient denied any lightheadedness or dizziness. Transfers: The patient was able to perform a sit to stand transfer with stand by assist x1 for safety. Once in a standing position, the patient was fit for a proper Contour LSO Complete brace and was shown how to maneuver the straps of the brace. Once that was secured in place a gait belt was placed around the patient. The patient transferred from a standing to seated position into the chair. Ambulation: The patient ambulated 300 feet with front wheeled walker with contact guard assist x1 for safety and was able to do so safely without complaints of pain. ASSESSMENT: The patient has good rehab potential. Problem List: Patient is status post lumbar fusion Decreased ability to perform transfers Decreased ability to perform ambulation and stairs Increased back pain Short-Term Goals: To be met by discharge from inpatient: Patient will be able to don and doff her LSO brace with modified independence. Patient will be able to properly perform log rolling into and out of bed safely and independently. Patient will be able to ambulate at least 150 feet with front wheeled walker safely and independently. Patient will be able to ascend and descend a flight of stairs with use of walker safely and independently. Long-Term Goals: To be met following discharge from inpatient: Patient may be seen by outpatient physical therapy if deemed necessary upon time of discharge. TREATMENT PLAN: Patient will be seen B.I.D during the week and one time per day over the weekend as an inpatient to address the above goals and objectives. We will see the patient tomorrow morning and once goals are met she will be discharged. INITIAL TREATMENT: Treatment today consisted of the initial evaluation and one unit of functional activity. Following treatment the patient transferred into her chair. She did wish to leave the back brace in place at that time. The patient was left with call light within reach and chair alarm set. The therapist did discuss with the patient trying stairs this afternoon dependent on her pain level. Hopefully at that time she will have her drain and Jamison removed. JABARI
--- NOTE | 2018-08-03 10:43 | OTI REPORT ---
Thank you for the referral of Lesa Hollingsworth. She was seen on 08/02/18 for an occupational therapy inpatient evaluation status post lumbar fusion. SUBJECTIVE: The patient is a 57-year-old female who is being seen secondary to a lumbar fusion. The patient reports that she lives in [place] with her mom and dad. She states her mom will be the one mainly helping her. She does have to go up a lot of stairs to get to the upper level of the home. They do have a high rise toilet seat as well as a bath chair. In the past she has never used adaptive devices in order to dress self and she was highly interested in these today. PAST MEDICAL HISTORY: Past medical history can be found in the patient's medical record. OBJECTIVE FINDINGS: Bed mobility: The patient completed bed mobility including log rolling with a lot of verbal cueing and encouragement. Activities of daily living: Once sitting edge of bed we went over how to use a ammunition assembly ii laborer and sock aide to dress self. The patient required min assist with the sock aide and min assist with the ammunition assembly ii laborer. She was issued a long handled bath sponge, long handled shoe horn, sock aide, and a ammunition assembly ii laborer and was instructed in their proper use. Balance: Once standing, the patient had decent balance and needed min assist to keep her balance. Transfers: The patient requires max for functional transfers. ASSESSMENT: The patient would benefit from at least one more session to improve her overall abilities. Problem List: Decreased ability to use adaptive devices Short-Term Goals: To be met by discharge from inpatient: Patient will be able to demonstrate independence with use of adaptive devices and follow back precautions while dressing lower extremities. Patient will be able to complete all functional transfers independently. Long-Term Goals: To be met following discharge from inpatient: Patient will be able to return home, demonstrating safety and independence with all functional transfers and ADLs. TREATMENT PLAN: Patient will be seen B.I.D during the week and one time per day over the weekend as an inpatient to address the above goals and objectives. INITIAL TREATMENT: Treatment today consisted of the initial evaluation activities only. JABARI
--- NOTE | 2018-08-06 09:54 | NEURO.DC ---
Discharge Summary Admit Date: 08/01/18 Discharge Date: 08/03/18 Admitting Diagnosis: See Op Report Discharge Diagnosis: See Op Report Primary Surgery and Date: 08/01/2018 See Op Report Hospital Course: Ms Hollingsworth was admitted to [facility] on 08/01/2018 to undergo the extensive lumbar spine surgery noted on the Operative Note. She was taken to the recovery room in stable condition and progressed to Med/Surg. Her post op course was uneventful. She progressed well with oral pain management and physical therapy for ADLs. She was ready for discharge home on her second post operative day with activity and wound care instructions. She was given a follow up appointment with Dr. Segovia in 2 weeks. Discharge Medications: Discharge Medications alprazolam 1 mg tablet 1 mg PO BID 06/27/18 [History] aspirin 325 mg tablet 325 mg PO QDAY 06/27/18 [History] atomoxetine 40 mg capsule 40 mg PO QDAY 06/27/18 [History] dextroamphetamine-amphetamine 10 mg tablet 10 mg PO QDAY 06/27/18 [History] duloxetine 60 mg capsule,delayed release 60 mg PO QDAY 06/27/18 [History] fluticasone 250 mcg-salmeterol 50 mcg/dose blistr powdr for inhalation 1 inh INH BID 06/27/18 [History] gabapentin 800 mg tablet 800 mg PO BID 06/27/18 [History] pantoprazole 40 mg tablet,delayed release 40 mg PO QDAY 06/27/18 [History] pravastatin 80 mg tablet 80 mg PO QDAY 06/27/18 [History] vortioxetine 10 mg tablet 10 mg PO QDAY 06/27/18 [History] Cetirizine HCl [Zyrtec] 10 mg PO DAILY 08/01/18 [History] Fluticasone/Salmeterol [Advair 250-50 Diskus] 1 ea IH DAILY 08/01/18 [History] Montelukast Sodium [Singulair] 10 mg PO DAILY 08/01/18 [History] Multivitamin [Multi-Vitamin Daily] 1 ea PO DAILY 08/01/18 [History] Ropinirole HCl [Requip] 2 mg PO DAILY 08/01/18 [History] Zolpidem Tartrate [Ambien Cr] 6.25 mg PO DAILY 08/01/18 [History] Diazepam [Valium] 5 - 10 mg PO Q6H PRN #60 tab 08/03/18 [Rx] oxyCODONE/APAP 10/325 Tab [Percocet 10325 Tab] 1 - 2 ea PO Q4-6H PRN #90 tab 08/03/18 [Rx] Follow-Up: Rafael Segovia [STAFF PHYSICIAN] - 08/14/18 11:30 am ( Appt in [facility] *) GLENNY COELHO [Primary Care Provider] - As Needed Discharge Instructions Provided to Patient / Family: Oxycodone/Acetaminophen ( By mouth), Diazepam (By mouth), Posterior Lumbar Interbody Fusion (DC) Exam - Vitals Vital Signs: Vital Signs Temperature 98.7 F Temperature Source Temporal Artery Scan Pulse Rate [Pulse Oximeter] 90 Pulse Rate 86 Respiratory Rate 18 Blood Pressure [Right Arm] 95/64 Blood Pressure 147/99 Pulse Ox 93 Oxygen Flow Rate 0.5 Oxygen Delivery Method Room Air Height 5 ft 3 in Weight 80.195 kg
== END 2018-08-03 09:40 | disposition home or self-care (01) | DRG 455 ==
LOC: OPS 05:24 → MED/SURG 17:34
PROVIDERS: ADMIT Neurological Surgery; ATTEND Neurological Surgery